=== PATIENT | female | born 1955 | race Caucasian/White ===

== ENCOUNTER → 2016-11-30 | Outpatient (CLI) | payer OTHER ==
--- NOTE | 2016-11-30 12:40 | Diagnostic Imaging Report ---
EXAM: Left digital diagnostic mammography, with computer aided detection system (CAD). DATE: 11/30/2016. COMPARISON: 11/15/2016. 11/10/2015. 11/08/2014. 10/15/2013. INDICATION: Left breast asymmetry noted on recent screening mammography. FINDINGS: There are scattered fibroglandular densities. There is resolution of the previously noted left breast asymmetry with spot compression view. This is consistent with an area of normal fibroglandular tissues. IMPRESSION: 1. No mammographic evidence of malignancy in the left breast. Recommend annual screening mammography and clinical breast exam. ACR BI-RADS Category 1: Negative. Result letter will be mailed to the patient. Note: At least 10% of breast cancer is not imaged by mammography. Dictated by: Dictated on workstation # [id number]
== END ==
LOC: RAD 09:58
PROVIDERS: ATTEND Family Medicine
DX: N64.59 Other signs and symptoms in breast (principal)